=== PATIENT | female | born 1985 | race American Indian/Alaskan Native ===

== ENCOUNTER 2016-07-01 20:57 | Emergency (ER) | payer OTHER ==
[2016-07-01 21:12] VITALS: BP 133/102
--- NOTE | 2016-07-02 02:28 | Emergency Department Report ---
- General Chief Complaint: Upper Respiratory Infection Stated Complaint: CP/COUGH/BODY PAIN/FEVER Time Seen by Provider: 07/02/16 02:23 Source: patient Mode of arrival: Ambulatory Limitations: No Limitations - History of Present Illness Initial Comments: 30-year-old female comes over complaining of cough 3 days with green phlegm. Patient reports she is having body aches fever she reports her chest and her back hurts when she coughs. She tried dlbg-cqn-ojzpjym medicines such as DayQuil and NyQuil without much success. She denies nausea vomiting she reports the cough is worse at night. She is not a smoker and she has no history of asthma. - Related Data Previous Rx's Medication Instructions Recorded Last Taken Type Azithromycin [Zithromax] 250 mg PO QDAY #6 tablet 07/02/16 Unknown Rx Benzonatate [Tessalon Perles] 100 mg PO Q8HR #30 capsule 07/02/16 Unknown Rx Allergies Allergy/AdvReac Type Severity Reaction Status Date / Time No Known Allergies Allergy Verified 07/02/16 01:46 ED Review of Systems ROS: Stated complaint: CP/COUGH/BODY PAIN/FEVER Other details as noted in HPI Constitutional: fever. denies: chills, weakness ENT: denies: ear pain, throat pain Respiratory: cough Cardiovascular: denies: palpitations Gastrointestinal: denies: nausea, vomiting, diarrhea ED Past Medical Hx - Past Medical History Previous Medical History?: No - Surgical History Past Surgical History?: No - Social History Smoking Status: Never Smoker Substance Use Type: None - Medications Home Medications: Home Medications Medication Instructions Recorded Confirmed Last Taken Type Azithromycin [Zithromax] 250 mg PO QDAY #6 tablet 07/02/16 Unknown Rx Benzonatate [Tessalon Perles] 100 mg PO Q8HR #30 capsule 07/02/16 Unknown Rx ED Physical Exam - General Limitations: No Limitations General appearance: alert, in no apparent distress - Head Head exam: Present: atraumatic, normocephalic - ENT ENT exam: Present: mucous membranes moist, TM's normal bilaterally - Neck Neck exam: Present: full ROM. Absent: tenderness, lymphadenopathy - Respiratory Respiratory exam: Present: normal lung sounds bilaterally, chest wall tenderness - Cardiovascular Cardiovascular Exam: Present: regular rate, normal rhythm, normal heart sounds - GI/Abdominal GI/Abdominal exam: Present: soft. Absent: distended, tenderness ED Course Vital Signs 07/01/16 21:11 Temperature 99.6 F Pulse Rate 100 H Respiratory 18 Rate Blood Pressure 133/102 [Left] O2 Sat by Pulse 97 Oximetry ED Medical Decision Making - Medical Decision Making Patient's been evaluated by this provider. Treat patient with Zithromax Z-Segun as well as Tessalon Perles for cough. She can take ibuprofen or Tylenol for pain. She can follow-up with the primary care provider we will refer her to one. Discussed with patient to have her blood pressure checked since it was elevated in fast track. Patient verbalized understanding. Critical care attestation.: If time is entered above; I have spent that time in minutes in the direct care of this critically ill patient, excluding procedure time. ED Disposition Clinical Impression: URI (upper respiratory infection) Qualifiers: URI type: unspecified URI Qualified Code(s): J06.9 - Acute upper respiratory infection, unspecified Disposition: DISCHARGED TO HOME OR SELFCARE Is pt being admited?: No Does the pt Need Aspirin: No Condition: Stable Instructions: Upper Respiratory Infection (ED) Additional Instructions: Complete antibiotics as prescribed and take cough medicine as prescribed. Follow with her primary care doctor within 3-5 days. Prescriptions: Benzonatate [Tessalon Perles] 100 mg PO Q8HR #30 capsule Azithromycin [Zithromax] 250 mg PO QDAY #6 tablet Referrals: JAGRUTI MADSEN MD [Primary Care Provider] - 3-5 Days MIGUEL FREGOSO MD [Staff Physician] - 3-5 Days Forms: Work/School Release Form(ED)
== END 2016-07-02 02:37 | disposition home or self-care (01) ==
LOC: ED 20:57
DX: J06.9 Acute upper respiratory infection, unspecified (principal); M79.1 Myalgia
CPT/HCPCS: 93005; 93010; 99282

== ENCOUNTER 2019-01-01 14:01 | Emergency (ER) | payer OTHER ==
[2019-01-01 14:23] VITALS: BP 148/97
--- NOTE | 2019-01-01 14:24 | Event Note ---
ED Screening Note Date of service: 01/01/19 Time: 14:22 ED Screening Note: 33 y/o female comes in for right side abd pain times 4 days. G0 LMP 11/18/18. This initial assessment/diagnostic orders/clinical plan/treatment(s) is/are subject to change based on patients health status, clinical progression and re- assessment by fellow clinical providers in the ED. Further treatment and workup at subsequent clinical providers discretion. Patient/guardian urged not to elope from the ED as their condition may be serious if not clinically assessed and managed. Initial orders include:
[2019-01-01 14:59] LABS: Basophils % (Auto) 0.9 % (0.0-1.8); Eosinophils # (Auto) 0.1 K/mm3 (0.0-0.4); Hematocrit 34.5 % (30.3-42.9); Hemoglobin 11.8 gm/dl (10.1-14.3); Lymphocytes # (Auto) 1.5 K/mm3 (1.2-5.4); Lymphocytes % (Auto) 37.3 % (13.4-35.0); Mean Corpuscular HGB Conc 34 % (30-34); Mean Corpuscular Volume 96 fl (79-97); Monocytes # (Auto) 0.4 K/mm3 (0.0-0.8); Monocytes % (Auto) 9.4 % (0.0-7.3); Platelet Count 148 K/mm3 (140-440); Red Cell Distribution Width 13.3 % (13.2-15.2)
[2019-01-01] MEDS ORDERED: MORPHINE IV ONE (15:05)
[2019-01-01] MEDS ORDERED: NACL 0.9% 1000 ML 1,000 ML IV ONE (15:05)
[2019-01-01] MEDS ORDERED: ZOFRAN IV ONE (15:05)
[2019-01-01 15:18] LABS: Alanine Aminotransferase 8 units/L (7-56); Albumin 4.2 g/dL (3.9-5); BUN/Creatinine Ratio 8; Blood Urea Nitrogen 6 mg/dL (7-17); Calcium 9.3 mg/dL (8.4-10.2); Hemolysis Index 3
[2019-01-01 15:57] LABS: Bilirubin,Urine NEG (Negative); Blood,Urine NEG (Negative); Color,Urine Yellow (Yellow); Mucus,Urine 1+ /HPF; Protein,Urine <15 mg/dL mg/dL (Negative)
--- NOTE | 2019-01-01 17:09 | Cat Scan Report ---
CT of the abdomen and pelvis with contrast INDICATION: Right lower quadrant pain x4 days COMPARISON: None FINDINGS: Lung bases are clear. The liver, spleen, pancreas, adrenal glands and kidneys show no abnor malities. No definite gallbladder or biliary tree abnormality. No fluid or adenopathy in the upper ab domen. CT of the pelvis shows markedly enlarged uterus with multiple fibroids some of which are pedunculated . The largest fibroid is in the uterine fundus measuring approximately 11 x 11 cm. There are dilated veins present perhaps due to the vascularity of the fibroids. The appendix is seen and is normal. The largest fibroid shows multiple areas of low attenuation probably necrosis. I could not totally exclu de sarcomatous transformation. There is only minimal pelvic fluid however without adenopathy or perit finney implants. There is no secondary bowel obstruction. No significant skeletal lesion. IMPRESSION: Extensive uterine fibroids as described with degeneration or potentially sarcomatous mckeon sformation of the larger fundal fibroid. No appendicitis or acute inflammatory process. Automated exposure control was utilized to diminish radiation dose. Signer Name: Morgan Hartley MD Signed: 01/01/2019 5:04 PM Workstation Name: [id number]
--- NOTE | 2019-01-01 17:49 | Emergency Department Report ---
ED Female HPI - General Chief complaint: Urogenital-Female Stated complaint: DISTENDED BLADDER Time Seen by Provider: 01/01/19 14:37 Source: patient Mode of arrival: Ambulatory Limitations: No Limitations - History of Present Illness Initial comments: This is a 33-year-old female nontoxic, well nourished in appearance, no acute signs of distress presents to the ED with c/o of pelvic pain x few weeks. Patient denies any nausea or vomiting. Patient denies upper abdominal pain. Patient denies chest pain, short of breath, fever, chills, headache, stiff neck, numbness or tingling. Patient denies any diarrhea or constipation. Patient denies any recent travels. Patient denies any urinary symptoms. Denies any allergies or significant past medical history. MD Complaint: pelvic pain -: week(s) Radiation: non-radiating Severity: mild Severity scale (0 -10): 3 Quality: cramping, aching Consistency: constant Improves with: none Worsens with: none Associated Symptoms: denies other symptoms. denies: vaginal discharge, vaginal bleeding, abdominal pain, nausea/vomiting, fever/chills, headaches, loss of appetite, dysuria, hematuria, rash, seizure, shortness of breath, syncope, weakness - Related Data Previous Rx's Medication Instructions Recorded Last Taken Type Azithromycin [Zithromax] 250 mg PO QDAY #6 tablet 07/02/16 Unknown Rx Benzonatate [Tessalon Perles] 100 mg PO Q8HR #30 capsule 07/02/16 Unknown Rx Acetaminophen/Codeine [Tylenol 1 tab PO Q6H PRN #12 tab 01/01/19 Unknown Rx /Codeine # 3 tab] Allergies Allergy/AdvReac Type Severity Reaction Status Date / Time No Known Allergies Allergy Verified 01/01/19 14:22 ED Review of Systems ROS: Stated complaint: DISTENDED BLADDER Other details as noted in HPI Constitutional: denies: chills, fever Eyes: denies: eye pain, eye discharge, vision change ENT: denies: ear pain, throat pain Respiratory: denies: cough, shortness of breath, wheezing Cardiovascular: denies: chest pain, palpitations Endocrine: no symptoms reported Gastrointestinal: denies: abdominal pain, nausea, diarrhea Genitourinary: denies: urgency, dysuria, discharge Musculoskeletal: denies: back pain, joint swelling, arthralgia Skin: denies: rash, lesions Neurological: denies: headache, weakness, paresthesias Psychiatric: denies: anxiety, depression Hematological/Lymphatic: denies: easy bleeding, easy bruising ED Past Medical Hx - Social History Smoking Status: Never Smoker Substance Use Type: None - Medications Home Medications: Home Medications Medication Instructions Recorded Confirmed Last Taken Type Azithromycin [Zithromax] 250 mg PO QDAY #6 tablet 07/02/16 Unknown Rx Benzonatate [Tessalon Perles] 100 mg PO Q8HR #30 capsule 07/02/16 Unknown Rx Acetaminophen/Codeine [Tylenol 1 tab PO Q6H PRN #12 tab 01/01/19 Unknown Rx /Codeine # 3 tab] ED Physical Exam - General Limitations: No Limitations General appearance: alert, in no apparent distress - Head Head exam: Present: atraumatic, normocephalic - Neck Neck exam: Present: normal inspection, full ROM. Absent: tenderness, meningismus, lymphadenopathy - Respiratory Respiratory exam: Present: normal lung sounds bilaterally. Absent: respiratory distress, wheezes, rales, rhonchi, stridor, chest wall tenderness, accessory muscle use, decreased breath sounds, prolonged expiratory - Cardiovascular Cardiovascular Exam: Present: regular rate, normal rhythm, normal heart sounds. Absent: bradycardia, tachycardia, irregular rhythm, systolic murmur, diastolic murmur, rubs, gallop - GI/Abdominal GI/Abdominal exam: Present: soft, normal bowel sounds, mass (pelvic area). Absent: distended, tenderness, guarding, rebound, rigid, diminished bowel sounds, pulsatile mass - Extremities Exam Extremities exam: Present: normal inspection, full ROM - Back Exam Back exam: Present: normal inspection, full ROM. Absent: tenderness, CVA tenderness (R), CVA tenderness (L), muscle spasm, paraspinal tenderness, vertebral tenderness, rash noted - Neurological Exam Neurological exam: Present: alert, oriented X3, normal gait - Psychiatric Psychiatric exam: Present: normal affect, normal mood - Skin Skin exam: Present: warm, dry, intact, normal color. Absent: rash ED Course Vital Signs 01/01/19 14:21 Temperature 98.8 F Pulse Rate 75 Respiratory 16 Rate Blood Pressure 148/97 O2 Sat by Pulse 99 Oximetry - Reevaluation(s) Reevaluation #1: 01/01/19 17:51 Patient is speaking in full sentences with no signs of distress noted. ED Medical Decision Making - Lab Data Result diagrams: 01/01/19 14:47 01/01/19 14:47 - Medical Decision Making This is a 33-year-old female that presents with large subungual fibroid. Patient is stable and was examined by me. There is no abdominal tenderness. Negative signs of symptoms of appendicitis. Labs obtained. UA obtained. CT of abdomen obtained and dictated by the radiologist. Patient is notified of the report with no questions noted by the patient. Vital signs are stable prior to discharge. Patient received medical treatment in the ED which patient stated symptoms has resovled and subsided. Was instructed note to operate any machinery due to possible drowsiness and stated someone will drive the patient home. A by mouth challenge has been obtained and patient tolerated well with no nausea vomiting. Patient was notified of strict precatuions of appendictis symptoms and to return to the ED if symptoms occurs as soon as possible. Patient was also instructed to Follow-up with a [facility] doctor in 2 days or if symptoms worsen and continue return to emergency room as soon as possible. At time of discharge, the patient does not seem toxic or ill in appearance. No acute signs of distress noted. Patient agrees to discharge treatment plan of care. No further questions noted by the patient. Critical care attestation.: If time is entered above; I have spent that time in minutes in the direct care of this critically ill patient, excluding procedure time. ED Disposition Clinical Impression: Pelvic pain Uterine fibroid Qualifiers: Uterine leiomyoma location: unspecified location Qualified Code(s): D25.9 - Leiomyoma of uterus, unspecified Disposition: DC-01 TO HOME OR SELFCARE Is pt being admited?: No Does the pt Need Aspirin: No Condition: Stable Instructions: Uterine Fibroids (ED) Additional Instructions: Follow-up with a [facility] doctor in 2 days or if symptoms worsen and continue return to emergency room as soon as possible. Do not operate any machinery while taking Tylenol with codeine as this may cause drowsiness. Prescriptions: Acetaminophen/Codeine [Tylenol /Codeine # 3 tab] 1 tab PO Q6H PRN #12 tab PRN Reason: Pain , Severe (7-10) Referrals: JESENIA RAE MD [Primary Care Provider] - 3-5 Days [facility]IMARY [facility], [Referring] - 3-5 Days STEPHANIE MCKENZIE MD [Staff Physician] - 3-5 Days [facility] [Provider Group] - 3-5 Days [facility] [Outside] - 3-5 Days Forms: Work/School Release Form(ED)
== END 2019-01-01 18:07 | disposition home or self-care (01) ==
LOC: ED 14:01
DX: D25.9 Leiomyoma of uterus, unspecified (principal); Z79.899 Other long term (current) drug therapy
CPT/HCPCS: 36415; 74177; 80053; 81001; 83690; 84703; 85025; 96374; 96375; 99284; J2270; J2405; J7030; Q9967; 96361

== ENCOUNTER 2019-04-25 11:04 | Emergency (ER) | payer SELFPAY ==
[2019-04-25 12:13] VITALS: BP 153/102
--- NOTE | 2019-04-25 14:34 | Emergency Department Report ---
ED General Adult HPI - General Chief complaint: Medical Clearance Stated complaint: NOSE/MOUTH IRRITATION/RHINO VIRUS Time Seen by Provider: 04/25/19 14:26 Source: patient Mode of arrival: Ambulatory Limitations: No Limitations - History of Present Illness Initial comments: 33-year-old -[place] female presents to the emergency room complaining o f cold symptoms 2 weeks. Patient states no relief from usqh-cqa-quzrjpt cold medications. Patient states that she has sores in her mouth and nose. Patient reports to nursing staff that she had body aches for one night she said they have improved patient also reports her nursing staff that she had a sore throat and runny nose but HAS improved since being here. Patient states that she has not had much of an appetite and is unable to sleep. Patient states that she is dealing with depression. Patient denies any homicidal or suicidal ideation. Patient denies hearing voices or hallucinating. Patient reports she does have a primary care doctor Dr. Russo but did not follow-up with them. -: week(s) Location: mouth Severity scale (0 -10): 4 Quality: burning, aching Consistency: intermittent Improves with: none Worsens with: eating Associated Symptoms: loss of appetite. denies: chest pain, cough, fever/chills, nausea/vomiting - Related Data Previous Rx's Medication Instructions Recorded Last Taken Type Azithromycin [Zithromax] 250 mg PO QDAY #6 tablet 07/02/16 Unknown Rx Benzonatate [Tessalon Perles] 100 mg PO Q8HR #30 capsule 07/02/16 Unknown Rx Acetaminophen/Codeine [Tylenol 1 tab PO Q6H PRN #12 tab 01/01/19 Unknown Rx /Codeine # 3 tab] Ascorbic Acid [Vitamin C] 1,000 mg PO QDAY #30 tablet 04/25/19 Unknown Rx Nystas/Diphen/Xyl Visc/Mylanta 30 ml MM Q4H PRN #150 ml 04/25/19 Unknown Rx [Magic Mouthwash] Allergies Allergy/AdvReac Type Severity Reaction Status Date / Time No Known Allergies Allergy Verified 01/01/19 14:22 ED Review of Systems ROS: Stated complaint: NOSE/MOUTH IRRITATION/RHINO VIRUS Other details as noted in HPI ED Past Medical Hx - Past Medical History Previous Medical History?: No - Surgical History Past Surgical History?: Yes Additional Surgical History: fibroid removal: January 2019 - Social History Smoking Status: Never Smoker Substance Use Type: Marijuana - Medications Home Medications: Home Medications Medication Instructions Recorded Confirmed Last Taken Type Azithromycin [Zithromax] 250 mg PO QDAY #6 tablet 07/02/16 Unknown Rx Benzonatate [Tessalon Perles] 100 mg PO Q8HR #30 capsule 07/02/16 Unknown Rx Acetaminophen/Codeine [Tylenol 1 tab PO Q6H PRN #12 tab 01/01/19 Unknown Rx /Codeine # 3 tab] Ascorbic Acid [Vitamin C] 1,000 mg PO QDAY #30 tablet 04/25/19 Unknown Rx Nystas/Diphen/Xyl Visc/Mylanta 30 ml MM Q4H PRN #150 ml 04/25/19 Unknown Rx [Magic Mouthwash] ED Physical Exam - General Limitations: No Limitations ED Course Vital Signs 04/25/19 12:10 Temperature 98.1 F Pulse Rate 77 Respiratory 18 Rate Blood Pressure 153/102 O2 Sat by Pulse 100 Oximetry ED Medical Decision Making - Medical Decision Making 33-year-old -[place] female presents to the emergency room complaining of cold symptoms 2 weeks. Patient states no relief from unjc-htn-wjdvroz cold medications. Patient states that she has sores in her mouth and nose. Patient reports to nursing staff that she had body aches for one night she said they have improved patient also reports her nursing staff that she had a sore throat and runny nose but HAS improved since being here. Patient states that she has not had much of an appetite and is unable to sleep. Patient states that she is dealing with depression. Patient denies any homicidal or suicidal ideation. Patient denies hearing voices or hallucinating. Patient reports she does have a primary care doctor Dr. Russo but did not follow-up with them. Patient appears to have a viral syndrome. Discussed with patient that she needs to treat her symptoms. We'll give her prescription for Magic mouthwash. Critical care attestation.: If time is entered above; I have spent that time in minutes in the direct care of this critically ill patient, excluding procedure time. ED Disposition Clinical Impression: Viral syndrome, Aphthous ulcer of mouth Disposition: TO HOME OR SELFCARE Is pt being admited?: No Does the pt Need Aspirin: No Condition: Stable Instructions: Viral Syndrome (ED), Canker Sores (ED) Prescriptions: Nystas/Diphen/Xyl Visc/Mylanta [Magic Mouthwash] 30 ml MM Q4H PRN #150 ml PRN Reason: Pain, Moderate (4-6) Ascorbic Acid [Vitamin C] 1,000 mg PO QDAY #30 tablet Referrals: PRIMARY CARE, [Primary Care Provider] - 3-5 Days Forms: Work/School Release Form(ED)
== END 2019-04-25 15:10 | disposition home or self-care (01) ==
LOC: ED 11:04
DX: B34.9 Viral infection, unspecified (principal); K12.0 Recurrent oral aphthae; F12.10 Cannabis abuse, uncomplicated
CPT/HCPCS: 99281